=== PATIENT | female | born 1945 | race Caucasian/White ===

== ENCOUNTER 2018-11-27 15:57 | Emergency (ER) | payer MEDICARE ==
[~2018-11-27] VITALS: Ht 157.5 cm; Wt 98.0 kg
[2018-11-27 16:48] LABS: BASO % 0 % (0-3); EOS # 0.2 x10^3/uL (0.0-0.7); EOS % 2 % (0-3); HEMOGLOBIN 12.1 g/dL (12.0-15.5); LYMPH # 4.3 x10^3/uL (1.0-4.8); LYMPH % 40 % (24-48); MEAN CORPUSCULAR HEMOGLOBIN 27 pg (25-35); MEAN CORPUSCULAR HGB CONC 33 g/dL (31-37); MEAN CORPUSCULAR VOLUME 83 fL (79-100); MONO # 0.6 x10^3/uL (0.0-1.1); MONO % 6 % (0-9); NEUT # 5.7 x10^3uL (1.8-7.7); NEUT % 52 % (31-73); PLATELET COUNT 330 x10^3/uL (140-400); RED BLOOD COUNT 4.47 x10^6/uL (3.50-5.40); RED CELL DISTRIBUTION WIDTH 16.3 % (11.5-14.5)
[2018-11-27 16:53] LABS: ALBUMIN 3.5 g/dL (3.4-5.0); ALBUMIN/GLOBULIN RATIO 0.8 (1.0-1.7); CALCIUM 10.3 mg/dL (8.5-10.1); CREATININE 1.4 mg/dL (0.6-1.0); GFR 36.9; POTASSIUM 4.7 mmol/L (3.5-5.1); TOTAL BILIRUBIN 0.3 mg/dL (0.2-1.0); TOTAL PROTEIN 7.9 g/dL (6.4-8.2)
[2018-11-27] MEDS ORDERED: IV NORMAL SALINE 1,000ML 1,000 ML IV ONE (17:00)
--- NOTE | 2018-11-27 17:30 | PHYS DOC ---
Past History Past Medical History: Diabetes, GERD, High Cholesterol, Heart Disease, Hypertension, Renal Disease, UTI (LISSETTE BHATIA Jr., DO) Past Surgical History: Tonsillectomy (LISSETTE BHATIA Jr., DO) Alcohol Use: None Drug Use: None (LISSETTE BHATIA Jr., DO) Adult General Chief Complaint Chief Complaint: OVERDOSE HPI HPI Patient is a 73-year-old female who arrives from home with report of accidental overdose of her medications. Patient accidentally doubled up on all of her medications today, having forgotten that she had taken them earlier in the day. Patient had called poison control who instructed her to come to the emergency room. Patient denies any chest pain or shortness of breath. She does admit to some mild lightheadedness. Medications of interest included amlodipine and carvedilol.[] (LISSETTE BHATIA Jr., DO) Review of Systems Review of Systems Constitutional: Denies fever or chills [] Respiratory: Denies cough or shortness of breath [] Cardiovascular: No additional information not addressed in HPI [] GI: Denies abdominal pain, nausea or vomiting[] Neurologic: Denies headache, focal weakness or sensory changes [] All other systems were reviewed and found to be within normal limits, except as documented in this note. (LISSETTE BHATIA Jr., DO) Current Medications Current Medications Current Medications Medications (Trade) Dose Ordered Sig/Teo Start Time Stop Time Status Last Admin Dose Admin Sodium Chloride 1,000 ml @ 1,000 mls/hr 1X ONCE 11/27/18 17:00 11/27/18 17:59 11/27/18 17:04 1,000 MLS/HR (LISSETTE BHATIA Jr., DO) Allergies Allergies Allergies Coded Allergies Type Severity Reaction Last Updated Verified doxycycline Allergy Unknown 11/27/18 Yes lisinopril Allergy Unknown 11/27/18 Yes (LISSETTE BHATIA Jr., DO) Physical Exam Physical Exam Constitutional: Well developed, well nourished, no acute distress, non-toxic appearance. [] HENT: Normocephalic, atraumatic, bilateral external ears normal, oropharynx moist, no oral exudates, nose normal. [] Eyes: PERRLA, EOMI, conjunctiva normal, no discharge. [] Neck: Normal range of motion, no tenderness, supple, no stridor. [] Cardiovascular: Regular rate and rhythm[] Lungs & Thorax: Bilateral breath sounds clear to auscultation [] Abdomen: Bowel sounds normal, soft, no tenderness. [] Skin: Warm, dry, no erythema, no rash. [] Extremities: No tenderness, no cyanosis, no clubbing, ROM intact, no edema. [] Neurologic: Alert and oriented X 3, no focal deficits noted. [] (LISSETTE BHATIA Jr. DO) Current Patient Data Vital Signs Vital Signs Date Time Temp Pulse Resp B/P (MAP) Pulse Ox O2 Delivery O2 Flow Rate FiO2 11/27/18 16:00 97.7 60 19 95 Room Air Lab Results Laboratory Tests Test 11/27/18 16:10 White Blood Count 11.0 x10^3/uL (4.0-11.0) Red Blood Count 4.47 x10^6/uL (3.50-5.40) Hemoglobin 12.1 g/dL (12.0-15.5) Hematocrit 37.0 % (36.0-47.0) Mean Corpuscular Volume 83 fL (79-100) Mean Corpuscular Hemoglobin 27 pg (25-35) Mean Corpuscular Hemoglobin Concent 33 g/dL (31-37) Red Cell Distribution Width 16.3 % (11.5-14.5) H Platelet Count 330 x10^3/uL (140-400) Neutrophils (%) (Auto) 52 % (31-73) Lymphocytes (%) (Auto) 40 % (24-48) Monocytes (%) (Auto) 6 % (0-9) Eosinophils (%) (Auto) 2 % (0-3) Basophils (%) (Auto) 0 % (0-3) Neutrophils # (Auto) 5.7 x10^3uL (1.8-7.7) Lymphocytes # (Auto) 4.3 x10^3/uL (1.0-4.8) Monocytes # (Auto) 0.6 x10^3/uL (0.0-1.1) Eosinophils # (Auto) 0.2 x10^3/uL (0.0-0.7) Basophils # (Auto) 0.0 x10^3/uL (0.0-0.2) Sodium Level 140 mmol/L (136-145) Potassium Level 4.7 mmol/L (3.5-5.1) Chloride Level 105 mmol/L (98-107) Carbon Dioxide Level 24 mmol/L (21-32) Anion Gap 11 (6-14) Blood Urea Nitrogen 38 mg/dL (7-20) H Creatinine 1.4 mg/dL (0.6-1.0) H Estimated GFR (Cockcroft-Gault) 36.9 BUN/Creatinine Ratio 27 (6-20) H Glucose Level 140 mg/dL (70-99) H Calcium Level 10.3 mg/dL (8.5-10.1) H Total Bilirubin 0.3 mg/dL (0.2-1.0) Aspartate Amino Transferase (AST) 15 U/L (15-37) Alanine Aminotransferase (ALT) 20 U/L (14-59) Alkaline Phosphatase 86 U/L (46-116) Total Protein 7.9 g/dL (6.4-8.2) Albumin 3.5 g/dL (3.4-5.0) Albumin/Globulin Ratio 0.8 (1.0-1.7) L (LISSETTE BHATIA Jr., DO) EKG EKG EKG demonstrates normal sinus rhythm with rate of 66[] (LISSETTE BHATIA Jr., DO) Radiology/Procedures Radiology/Procedures [] (LISSETTE BHATIA Jr., DO) Course & Med Decision Making Course & Med Decision Making Pertinent Labs and Imaging studies reviewed. (See chart for details) [] (LISSETTE BHATIA Jr., DO) Course & Med Decision Making Re-exam. EKG. sinus bradycardia 59 bpm. Some nonspecific contour abnormalities. No acute interval change. Reviewed history with patient and daughter advised I saw overdose occurred approximately 1400 hrs. today. Impression- 1. Accidental overdose 2. Mild dehydration BUN 38 creatinine 1.4 3. Diabetes glucose 140 Patient follow-up primary care. Patient suggests to use a pill tray- pre-load tray. This would help patient avoid accidental intake of her meds twice. Patient return of any concerns. Patient push fluids. Patient follow-up primary care. Patient without symptoms on discharge. Patient ambulatory without problems. (BRODY PAREKH MD) Dragon Disclaimer Dragon Disclaimer This electronic medical record was generated, in whole or in part, using a voice recognition dictation system. (BHATIA,LISSETTE D Jr. DO) Departure Departure: Impression: Primary Impression: Accidental overdose Disposition: 01 HOME/RESIDENCE PRIOR TO ADM Condition: STABLE Dragon Disclaimer This chart was dictated in whole or in part using Voice Recognition software in a busy, high-work load, and often noisy Emergency Department environment. It may contain unintended and wholly unrecognized errors or omissions. (BRODY PAREKH MD) Problem Qualifiers Primary Impression: Accidental overdose Encounter type: initial encounter Qualified Codes: T50.901A - Poisoning by unspecified drugs, medicaments and biological substances, accidental (unintentional), initial encounter LISSETTE BHATIA Jr., DO Nov 27, 2018 17:30 BRODY PAREKH MD Nov 27, 2018 19:22
--- NOTE | 2018-11-27 18:04 | EKG ---
[address] [address] Test Date: 2018-11-27 Test Time: 16:39:10 Pat Name: AGUSTIN BINGHAM Department: Room: Gender: F Cluster Bore Operator: MOHIT : 1945 Requested By: LISSETTE BHATIA Order Number: [id number] Reading MD: Measurements Intervals [place] Rate: 62 P: 29 MI: 210 QRS: 16 QRSD: 102 T: 107 QT: 390 QTc: 398 Interpretive Statements SINUS RHYTHM QRS(T) CONTOUR ABNORMALITY CONSIDER ANTEROSEPTAL MYOCARDIAL DAMAGE CONSISTENT WITH INFERIOR INFARCT PROBABLY OLD T ABNORMALITY IN HIGH LATERAL LEADS ABNORMAL ECG RI6.01 No previous ECG available for comparison
[2018-11-27] MEDS ORDERED: MAGNESIUM HYDROXIDE 2,400 MG/30 ML ORAL.SUSP. PO ONE (20:00)
[2018-11-27 21:15] VITALS: BP 134/72
--- NOTE | 2018-11-28 06:40 | EKG ---
[address] [address] Test Date: 2018-11-27 Test Time: 18:43:07 Pat Name: AGUSTIN BINGHAM Department: Room: Gender: F Wiring Inspector: MOHIT : 1945 Requested By: LISSETTE BHATIA Order Number: [id number] Reading MD: Measurements Intervals [place] Rate: 59 P: 30 [place]: 214 QRS: 10 QRSD: 102 T: 42 QT: 400 QTc: 400 Interpretive Statements SINUS RHYTHM QRS(T) CONTOUR ABNORMALITY CONSISTENT WITH INFERIOR INFARCT PROBABLY OLD ABNORMAL ECG RI6.01 No previous ECG available for comparison
[2018-11-29] MEDS ORDERED: ATORVASTATIN CA80 MG PO (03:01)
[2018-11-29] MEDS ORDERED: AMLO10TA8 PO (03:01)
[2018-11-29] MEDS ORDERED: CLOP75TA PO (03:01)
[2018-11-29] MEDS ORDERED: CARV25TA2 PO (03:01)
[2018-11-29] MEDS ORDERED: RANI150C PO (03:01)
== END 2018-11-27 21:15 | disposition home or self-care (01) ==
LOC: ER 15:57
DX: T50.991A Poisoning by other drugs, medicaments and biological substances, accidental (unintentional), initial encounter (principal); E86.0 Dehydration; E11.9 Type 2 diabetes mellitus without complications; K21.9 Gastro-esophageal reflux disease without esophagitis; E78.00 Pure hypercholesterolemia, unspecified; I11.9 Hypertensive heart disease without heart failure; Z87.440 Personal history of urinary (tract) infections; Z88.1 Allergy status to other antibiotic agents; Z88.8 Allergy status to other drugs, medicaments and biological substances; Y92.89 Other specified places as the place of occurrence of the external cause
CPT/HCPCS: 36415; 80053; 85025; 93005; 96360; 96361; 99285-25; J7030

== ENCOUNTER 2018-12-28 22:26 | Inpatient (IN) | payer MEDICARE ==
[~2018-12-28] VITALS: Ht 157.5 cm; Wt 74.6 kg
[~2018-12-28 22:26] MED LIST: AMLO10TA8 PO; ATORVASTATIN CA80 MG PO; CARV25TA2 PO; CLOP75TA PO; ENOXAPARIN ** NOTE DOSE ** SYRINGE SQ ONE; RANI150C PO
--- NOTE | 2018-12-28 22:31 | ED.ADGEN ---
Past History Past Medical History: Anxiety, Arthritis, CAD, Diabetes, GERD, High Cholesterol, Heart Disease, Hypertension, Renal Disease, UTI Past Surgical History: Coronary Bypass Surgery, Tonsillectomy Alcohol Use: None Drug Use: None Adult General Chief Complaint Chief Complaint ".. She was complaining of tingle in lips.. and dizzy.. and we check her glucose and it was low.. we just see [facility] today.. we just changed some of her diabetic meds.. Saligui... or something.. " Daughter HPI HPI Patient is a 73 year old female who presents with above hx and complaints of hypoglycemia. Pt. hx of diabetes and has recently had changes in her medications for better control of her glucose. Pt. recently has moved in with her daughter. Pt. follows with [facility]. Pt. has been attempting to have better diet. Pt. hypoglycemic a home tonight. Pt. does not have hx of hypoglycemic unawareness. Review of Systems Review of Systems Constitutional: Denies fever or chills [] Eyes: Denies change in visual acuity, redness, or eye pain [] HENT: Denies nasal congestion or sore throat [] Respiratory: Denies cough or shortness of breath [] Cardiovascular: No additional information not addressed in HPI [] GI: Denies abdominal pain, nausea, vomiting, bloody stools or diarrhea [] : Denies dysuria or hematuria [] Musculoskeletal: Denies back pain or joint pain [] Integument: Denies rash or skin lesions [] Neurologic: Denies headache, focal weakness or sensory changes []complaints of tremor and numbness� One her glucose drops . Endocrine: Denies polyuria or polydipsia [] All other systems were reviewed and found to be within normal limits, except as documented in this note. Family History Family History Diabetes. Hypertension Current Medications Current Medications Current Medications Medications (Trade) Dose Ordered Sig/Teo Start Time Stop Time Status Last Admin Dose Admin Dextrose (Dextrose 50%-Water Syringe) 25 gm 1X ONCE 12/28/18 23:45 12/28/18 23:46 DC 12/28/18 23:45 25 GM Enoxaparin Sodium (Lovenox 100mg Syringe) 100 mg 1X ONCE 12/28/18 00:15 12/28/18 00:16 Cancel Lactated Ringer's 1,000 ml @ 100 mls/hr Q10H 12/28/18 22:36 12/29/18 08:35 12/28/18 23:04 100 MLS/HR Allergies Allergies Allergies Coded Allergies Type Severity Reaction Last Updated Verified doxycycline Allergy Unknown 11/27/18 Yes lisinopril Allergy Unknown 11/27/18 Yes Physical Exam Physical Exam Constitutional: moderate distress, non-toxic appearance. [] HENT: Normocephalic, atraumatic, bilateral external ears normal, oropharynx moist, no oral exudates, nose normal. [] Eyes: PERRLA, EOMI, conjunctiva normal, no discharge. [] Neck: Normal range of motion, no tenderness, supple, no stridor. [] Cardiovascular:Heart rate regular rhythm, no murmur [] PMI to Lt. Lungs & Thorax: Bilateral breath sounds clear to auscultation []midline scar Abdomen: Bowel sounds normal, soft, no tenderness, no masses, no pulsatile masses. [] Skin: Warm, dry, no erythema, no rash. [] Back: No tenderness, no CVA tenderness. [] Extremities: No tenderness, no cyanosis, no clubbing, ROM intact, no edema. [] Neurologic: Alert and oriented X 3, moves all extremities on request. Has decreased plantar sensory, no focal deficits noted. []Slight intentional tremor. No cording appreciated Psychologic: Affect anxious, judgement normal, mood normal. [] Current Patient Data Vital Signs Vital Signs Date Time Temp Pulse Resp B/P (MAP) Pulse Ox O2 Delivery O2 Flow Rate FiO2 12/28/18 23:29 73 18 159/75 (103) 95 Room Air 12/28/18 22:26 97.5 Lab Results Laboratory Tests Test 12/28/18 22:34 12/28/18 22:50 12/28/18 23:33 Glucose (Fingerstick) 107 mg/dL (70-99) H 44 mg/dL (70-99) L White Blood Count 14.4 x10^3/uL (4.0-11.0) H Red Blood Count 4.52 x10^6/uL (3.50-5.40) Hemoglobin 12.1 g/dL (12.0-15.5) Hematocrit 37.2 % (36.0-47.0) Mean Corpuscular Volume 82 fL (79-100) Mean Corpuscular Hemoglobin 27 pg (25-35) Mean Corpuscular Hemoglobin Concent 33 g/dL (31-37) Red Cell Distribution Width 17.0 % (11.5-14.5) H Platelet Count 346 x10^3/uL (140-400) Neutrophils (%) (Auto) 59 % (31-73) Lymphocytes (%) (Auto) 29 % (24-48) Monocytes (%) (Auto) 10 % (0-9) H Eosinophils (%) (Auto) 2 % (0-3) Basophils (%) (Auto) 1 % (0-3) Neutrophils # (Auto) 8.4 x10^3uL (1.8-7.7) H Lymphocytes # (Auto) 4.1 x10^3/uL (1.0-4.8) Monocytes # (Auto) 1.4 x10^3/uL (0.0-1.1) H Eosinophils # (Auto) 0.3 x10^3/uL (0.0-0.7) Basophils # (Auto) 0.1 x10^3/uL (0.0-0.2) Prothrombin Time 9.5 SEC (9.4-11.4) Prothrombin Time INR 0.9 (0.9-1.1) Activated Partial Thromboplast Time 26 SEC (23-33) D-Dimer (Katie) 2.24 mg/L (0.00-0.50) H Sodium Level 141 mmol/L (136-145) Potassium Level 3.8 mmol/L (3.5-5.1) Chloride Level 104 mmol/L (98-107) Carbon Dioxide Level 27 mmol/L (21-32) Anion Gap 10 (6-14) Blood Urea Nitrogen 26 mg/dL (7-20) H Creatinine 1.3 mg/dL (0.6-1.0) H Estimated GFR (Cockcroft-Gault) 40.2 Glucose Level 115 mg/dL (70-99) H Calcium Level 10.1 mg/dL (8.5-10.1) Magnesium Level 2.0 mg/dL (1.8-2.4) Total Bilirubin 0.5 mg/dL (0.2-1.0) Direct Bilirubin 0.1 mg/dL (0.0-0.2) Aspartate Amino Transferase (AST) 18 U/L (15-37) Alanine Aminotransferase (ALT) 19 U/L (14-59) Alkaline Phosphatase 90 U/L (46-116) Creatine Kinase 97 U/L (26-192) Troponin I Quantitative < 0.017 ng/mL (0-0.055) RW-Pyk-B-Type Natriuretic Peptide 278 pg/mL (0-124) H Total Protein 8.5 g/dL (6.4-8.2) H Albumin 3.8 g/dL (3.4-5.0) Lipase 213 U/L (73-393) EKG EKG My interpretation EKG shows a sinus rhythm at 77 bpm. Has prolonged GA interval. There is intraventricular block. There is baseline artifact[] Radiology/Procedures Radiology/Procedures [] Course & Med Decision Making Course & Med Decision Making Pertinent Labs and Imaging studies reviewed. (See chart for details) Pt. had recurrent episodes of hypoglycemia in ED. Will admit for observation until glucose levels stabilize. Pt. admitted to Dr. Akers. Obtain US legs in Am. Consider V/Q or CT angio once hydrated if US leg are negative. [] Final Impression Final Impression 1. DM 2. Hypoglycemia[] 3. History of hypertension 4. Leukocytosis 14.4 5. Elevated BUN and creatinine 26/1.3 6. Elevated D-dimer 2.24 Dragon Disclaimer Dragon Disclaimer This electronic medical record was generated, in whole or in part, using a voice recognition dictation system. Dragon Disclaimer This chart was dictated in whole or in part using Voice Recognition software in a busy, high-work load, and often noisy Emergency Department environment. It may contain unintended and wholly unrecognized errors or omissions. BRODY PAREKH MD Dec 28, 2018 22:30
[2018-12-28] MEDS ORDERED: IV RINGERS SOLUTION,LACTATED 1,000 ML IV SCH (22:36)
[2018-12-28 23:12] LABS: BASO # 0.1 x10^3/uL (0.0-0.2); BASO % 1 % (0-3); EOS # 0.3 x10^3/uL (0.0-0.7); EOS % 2 % (0-3); HEMATOCRIT 37.2 % (36.0-47.0); HEMOGLOBIN 12.1 g/dL (12.0-15.5); LYMPH # 4.1 x10^3/uL (1.0-4.8); LYMPH % 29 % (24-48); MEAN CORPUSCULAR HEMOGLOBIN 27 pg (25-35); MEAN CORPUSCULAR HGB CONC 33 g/dL (31-37); MEAN CORPUSCULAR VOLUME 82 fL (79-100); MONO # 1.4 x10^3/uL (0.0-1.1); MONO % 10 % (0-9); NEUT # 8.4 x10^3uL (1.8-7.7); NEUT % 59 % (31-73); PLATELET COUNT 346 x10^3/uL (140-400); RED BLOOD COUNT 4.52 x10^6/uL (3.50-5.40); WHITE BLOOD COUNT 14.4 x10^3/uL (4.0-11.0)
[2018-12-28 23:35] LABS: ALBUMIN 3.8 g/dL (3.4-5.0); CALCIUM 10.1 mg/dL (8.5-10.1); CREATININE 1.3 mg/dL (0.6-1.0); DIRECT BILIRUBIN 0.1 mg/dL (0.0-0.2); GFR 40.2; POTASSIUM 3.8 mmol/L (3.5-5.1); TOTAL BILIRUBIN 0.5 mg/dL (0.2-1.0); TOTAL PROTEIN 8.5 g/dL (6.4-8.2)
[2018-12-28] MEDS ORDERED: DEXTROSE 50% 25 GM / 50ML DISP.SYRIN. IV ONE ×2 (23:36→23:45)
[2018-12-29] MEDS ORDERED: IV RINGERS SOLUTION,LACTATED 1,000 ML IV ONE
[2018-12-29] MEDS ORDERED: ONDANSETRON PF 4 MG/2 ML VIAL. IV PRN
[2018-12-29] MEDS ORDERED: ACETAMINOPHEN 325 MG TABLET PO PRN
[2018-12-29] MEDS ORDERED: DEXTROSE 25% 10 ML DISP.SYRIN. IV ONE
[2018-12-29] MEDS ORDERED: DEXTROSE 50% 25 GM / 50ML DISP.SYRIN. IV PRN (01:30)
[2018-12-29 01:40] LABS: BARBITURATES NEG (NEG); BENZODIAZEPINES NEG (NEG); CANNABINOIDS NEG (NEG); COCAINE NEG (NEG); METHADONE NEG (NEG); OPIATES NEG (NEG); PHENCYCLIDINE NEG (NEG)
[2018-12-29 01:44] LABS: BACTERIA,URINE 0 /HPF (0-FEW); BILIRUBIN,URINE NEG (NEG); CLARITY,URINE CLEAR; COLOR,URINE YELLOW; GLUCOSE,URINE NEG (NEG); NITRITE,URINE NEG (NEG); RBC,URINE 0 /HPF (0-2); SQUAMOUS EPITHELIAL CELL,UR MOD /LPF; UROBILINOGEN,URINE 0.2 mg/dL (0.2 mg/dL)
[2018-12-29 01:46] LABS: AMPHETAMINE/METHAMPHETAMINE NEG (NEG)
--- NOTE | 2018-12-29 02:10 | NUR ---
The patient, AGUSTIN BINGHAM, 73 y/o, F admitted by EFRAIN MCKINNEY MD, was given written information regarding hospital policies, unit procedures and contact persons. Patient admitted form ED per [facility]. Patient stated that after taking new insulin her lips and face felt numb and so she came to ED. Patient alert and oriented x 4. Patient denies any complaints at this time. Patient's daughter at bedside with Patient and assists with patient care at home. Patient oriented to room, call light, bed and plan of care. See admission assessment/documentation. Call light in reach and patient gave return demonstration on use of call light for assistance. Valuables were checked and .Patient daughter took Patient purse with valuables home.
[2018-12-29 02:15] VITALS: BP 157/65
[2018-12-29] MEDS ORDERED: BRIM5DRO3 EACHEYE (03:46)
[2018-12-29] MEDS ORDERED: TORS5TAB3 PO (03:47)
[2018-12-29] MEDS ORDERED: LOSA100T14 PO ×2 (03:48→08:07)
[2018-12-29] MEDS ORDERED: INSU100C4 SQ (03:50)
[2018-12-29] MEDS ORDERED: INSU100I13 SQ ×2 (03:51→15:55)
[2018-12-29] MEDS ORDERED: CETI10TA16 PO (03:52)
[2018-12-29] MEDS ORDERED: DORZ10DR27 EACHEYE (03:53)
[2018-12-29 05:18] VITALS: BP 157/69
[2018-12-29] MEDS ORDERED: ENOXAPARIN ** NOTE DOSE ** SYRINGE SQ ONE (05:30)
[2018-12-29 06:45] LABS: BASO % 0 % (0-3); EOS # 0.2 x10^3/uL (0.0-0.7); EOS % 2 % (0-3); HEMATOCRIT 33.3 % (36.0-47.0); LYMPH # 3.6 x10^3/uL (1.0-4.8); LYMPH % 37 % (24-48); MEAN CORPUSCULAR HEMOGLOBIN 27 pg (25-35); MEAN CORPUSCULAR HGB CONC 33 g/dL (31-37); MEAN CORPUSCULAR VOLUME 83 fL (79-100); MONO # 0.8 x10^3/uL (0.0-1.1); MONO % 8 % (0-9); NEUT # 5.3 x10^3uL (1.8-7.7); NEUT % 53 % (31-73); PLATELET COUNT 314 x10^3/uL (140-400); RED BLOOD COUNT 4.03 x10^6/uL (3.50-5.40); RED CELL DISTRIBUTION WIDTH 16.7 % (11.5-14.5)
[2018-12-29 06:59] LABS: CALCIUM 9.5 mg/dL (8.5-10.1); CREATININE 1.2 mg/dL (0.6-1.0); POTASSIUM 4.1 mmol/L (3.5-5.1)
[2018-12-29] MEDS ORDERED: CETIRIZINE HCL 10 MG TABLET PO SCH (09:00)
[2018-12-29] MEDS ORDERED: amLODIPine BESYLATE 10 MG TABLET PO SCH (09:00)
[2018-12-29] MEDS ORDERED: BRIMONIDINE 0.2% OPHTH SOLUTION 5ML BOTTLE. OU SCH (09:00)
[2018-12-29] MEDS ORDERED: CARVEDILOL 12.5 MG TABLET PO SCH (09:00)
[2018-12-29] MEDS ORDERED: DORZOLAMIDE/TIMOLOL 2%/0.5% OPHTH SOLUTION 10ML BOTTLE. OU SCH (09:00)
[2018-12-29] MEDS ORDERED: FAMOTIDINE 20 MG TABLET PO SCH (09:00)
[2018-12-29] MEDS ORDERED: CLOPIDOGREL BISULFATE 75 MG TABLET PO SCH (09:00)
--- NOTE | 2018-12-29 09:50 | RAD ---
LEFT LEG VENOUS DOPPLER STUDY: Clinical indications: Elevated d-dimer. Findings: Duplex sonography (including hurd scale evaluation and color flow and waveform spectral analysis) of the proximal aspect of the greater saphenous vein and the proximal aspect of the profunda femoral vein and the entire length of the common femoral and superficial femoral and popliteal veins and the tibioperoneal trunk and the proximal aspect of the posterior tibial and peroneal veins of the left leg was performed. Normal compressibility, augmentation of color Doppler flow after calf compression, and respiratory variation of Doppler flow is seen. Thus, there are no sonographic findings of deep venous thrombosis within these veins. Impression: There are no sonographic findings of deep venous thrombosis within the veins discussed above of the left lower extremity. RIGHT LEG VENOUS DOPPLER STUDY: Clinical indications: Elevated d-dimer. Findings: Duplex sonography (including hurd scale evaluation and color flow and waveform spectral analysis) of the proximal aspect of the greater saphenous vein and proximal aspect of the profunda femoral vein and the entire length of the common femoral and superficial femoral and popliteal veins and the tibioperoneal trunk and the proximal aspect of the posterior tibial and peroneal veins of the right leg was performed. Normal compressibility, augmentation of color Doppler flow after calf compression, and respiratory variation of Doppler flow is seen. Thus, there are no sonographic findings of deep venous thrombosis within these veins. Impression: There are no sonographic findings of deep venous thrombosis within the veins discussed above of the right lower extremity. Electronically signed by: Rakesh Mayorga MD (12/29/2018 9:47 AM) [id number]
[2018-12-29 11:15] VITALS: BP 149/70
--- NOTE | 2018-12-29 14:08 | RAD ---
CHEST PA LATERAL History: Coronary artery disease Comparison: None. Findings: Frontal and lateral views of chest were obtained. Sternal wires [place] clips are present. The cardiomediastinal silhouette is normal. Pulmonary vasculature is normal. The lungs are clear. No pleural effusion or pneumothorax is seen. There is no acute bone abnormality. IMPRESSION: No acute cardiopulmonary process. Electronically signed by: Luis A Maciel MD (12/29/2018 2:06 PM) [facility]
[2018-12-29 14:57] VITALS: BP 165/67
--- NOTE | 2018-12-29 16:47 | NUR ---
Discharge Note: AGUSTIN BINGHAM [address] Discharge instructions and discharge home medications reviewed with Patient and a copy given. All questions have been answered and understanding verbalized. The following instructions and handouts were given: hypoglycemia Discontinued lines and drains: IV d/c removed, dressing applied Patient discharged to home with daughter present.
--- NOTE | 2018-12-29 17:13 | SSS ---
ADMIT DATE: 12/29/2018 HISTORY OF PRESENT ILLNESS: The patient a 73-year-old female patient who came to the Emergency Room complaining of tingling in her lips and dizzy and her blood sugar apparently was very low. She was seen by her primary care physician who added Soliqua 40 units subcutaneously in the evening. She is on NovoLog 15 units 3 times a day and her Lantus was 75 units twice a day, cut down to 57 twice a day and now recently she is down to 40 units twice a day. On top of that, they added the Soliqua and that is why the patient became hypoglycemic. She was admitted. We held all her insulin and have observed her over the 24-hour period and her blood sugar has been stable between 100-150. We have had a lengthy discussion with her and decision was made to go back on her NovoLog and Lantus and discontinue the Soliqua and we will arrange for her to be seen by an terrazzo worker helper, we will provide her the name and telephone number to make an appointment to be seen at the Endocrinology Clinic at [facility]. When I saw her, she was awake, alert and denied any complaint. PAST MEDICAL HISTORY: Significant for type 2 diabetes, coronary artery disease, hyperlipidemia, hypertension, chronic kidney disease and recurrent UTIs. She is also known to have anxiety and osteoarthritis. PAST SURGICAL HISTORY: Significant for coronary artery bypass graft surgery and tonsillectomy. ALLERGIES: She is allergic to DOXYCYCLINE AND LISINOPRIL. MEDICATIONS: She is currently on following medications: She is on cetirizine 10 mg once a day, Plavix 75 mg once a day, atorvastatin calcium 80 mg at bedtime, carvedilol 12.5 mg twice a day, amlodipine 10 mg daily, losartan potassium 100 mg daily, brimonidine tartrate for Alphagan one drop to both eyes twice a day, dorzolamide/timolol 1 drop to both eyes twice a day, ranitidine 150 mg twice a day. She is on NovoLog insulin 15 units before meals and Lantus insulin 40 units subcutaneously twice a day. FAMILY HISTORY: Noncontributory. SOCIAL HISTORY: She lives with her daughter. She apparently does not smoke, drink alcohol or use any recreational drugs. REVIEW OF SYSTEMS: As per history of present illness. PHYSICAL EXAMINATION: GENERAL: On arrival, the patient looked well and was clearly in no apparent respiratory distress. No pallor, jaundice, cyanosis or thyromegaly. No jugular venous distention. No lower limb edema. VITAL SIGNS: Her heart rate was 72, blood pressure 140/78, temperature was 98, respiratory rate was 20, and oxygen saturation was 94%. HEAD, EYES, EARS, NOSE AND THROAT: Showed normocephalic, atraumatic. NECK: Supple. HEART: Showed normal first and second heart sounds with no gallop or murmur. CHEST: Clear to auscultation. No crepitation, rhonchi. ABDOMEN: Distended, soft, nontender. No guarding or rigidity. No organomegaly. All hernial orifices intact. Bowel sounds normal. NEUROLOGIC: She was awake, alert, responding appropriately. All cranial nerves intact. EXTREMITIES: She moves extremities without difficulty. LABORATORY DATA: Her blood sugar on arrival was actually 107 mg/dL. Her lab work showed a serum sodium 141, potassium 3.8, chloride 104, bicarbonate 27, anion gap of 10, BUN 26, creatinine 1.3, estimated GFR was 40 mL per minute. Her glucose 115, calcium was 7.1, magnesium 2. Total bilirubin, AST, ALT, alkaline phosphatase were normal. Total protein was 8.5, albumin was 3.8. Her lipase was 113. TSH was slightly high at 10.6. Her prothrombin time was 9.5, INR of 0.9, aPTT was 26 and D-dimer was 2.24. Urinalysis was essentially unremarkable and toxic screen was negative. Her chest x-ray showed the sternal wires are present. The cardiomediastinal silhouette is normal. Pulmonary vasculature is normal. The lungs are clear. No pleural effusion or pneumothorax is seen. There is no acute bony abnormality. Her Doppler ultrasound of both lower extremities showed there is no sonographic finding of deep vein thrombosis in the left and right lower extremity. IMPRESSION AND PLAN: The patient remained hemodynamically stable throughout her stay. Her blood sugar has been stable between 100-150 and therefore, the patient will be discharged home to go back on her Lantus insulin 40 units twice a day, NovoLog 15 units 3 times a day before meals, we discontinued Soliqua and the patient will follow with her primary care physician as well as arrangement will be made for her to be seen by an terrazzo worker helper at [facility]. Meanwhile, she should continue on following medications. EFRAIN MCKINNEY MD DR: LONA/manuel JOB#: [id number] / [id number]
[2018-12-29] MEDS ORDERED: ATORVASTATIN CALCIUM 20 MG TABLET PO SCH (21:00)
[2018-12-30 01:06] LABS: HEMOGLOBIN A1C 7.9 % (4.8-5.6)
== END 2018-12-29 16:49 | disposition home or self-care (01) | DRG 639 ==
LOC: ER 22:26 → 1 SOUTH 23:45
PROVIDERS: ADMIT Internal Medicine; ATTEND Internal Medicine
DX: E11.649 Type 2 diabetes mellitus with hypoglycemia without coma (principal); E11.22 Type 2 diabetes mellitus with diabetic chronic kidney disease; E78.00 Pure hypercholesterolemia, unspecified; E78.5 Hyperlipidemia, unspecified; I12.9 Hypertensive chronic kidney disease with stage 1 through stage 4 chronic kidney disease, or unspecified chronic kidney disease; I25.10 Atherosclerotic heart disease of native coronary artery without angina pectoris; K21.9 Gastro-esophageal reflux disease without esophagitis; N18.9 Chronic kidney disease, unspecified; F41.9 Anxiety disorder, unspecified; M19.90 Unspecified osteoarthritis, unspecified site; Z79.4 Long term (current) use of insulin; Z82.49 Family history of ischemic heart disease and other diseases of the circulatory system; Z83.3 Family history of diabetes mellitus; Z87.440 Personal history of urinary (tract) infections; Z95.1 Presence of aortocoronary bypass graft; Z88.8 Allergy status to other drugs, medicaments and biological substances; Z79.899 Other long term (current) drug therapy
CPT/HCPCS: 36415; 71046; 80048; 80076; 80307; 81001; 82550; 82947; 83036; 83690; 83735; 83880; 84443; 84484; 85025; 85379; 85610; 85730; 87086; 93970; 96361; 96374; J1650; J7120; 99285-25

== ENCOUNTER 2019-05-15 23:25 | Emergency (ER) | payer MEDICARE ==
[~2019-05-15] VITALS: Ht 157.5 cm; Wt 76.5 kg
[~2019-05-15 23:25] MED LIST changes: +BRIM5DRO3 EACHEYE; +CETI10TA16 PO; +DORZ10DR27 EACHEYE; -ENOXAPARIN ** NOTE DOSE ** SYRINGE SQ ONE; +INSU100C4 SQ; +INSU100I13 SQ; +LOSA100T14 PO; +TORS5TAB3 PO
[2019-05-16] MEDS ORDERED: IV NORMAL SALINE 1,000ML 1,000 ML IV SCH
--- NOTE | 2019-05-16 00:09 | PHYS DOC ---
Past History Past Medical History: Anxiety, Arthritis, CAD, Diabetes, GERD, High Cholesterol, Heart Disease, Hypertension, [place], Renal Disease, UTI Additional Past Medical Histor: PAD, high tricyclerides Past Surgical History: Coronary Bypass Surgery, Tonsillectomy Additional Past Surgical Histo: 5 heart bypass Alcohol Use: None Drug Use: None Adult General Chief Complaint Chief Complaint: ABNORMAL LABS [facility] Patient is a 74-year-old female who presents with report of abnormal lab work. Patient had potassium level of 6.3 and was instructed to come into the emergency room for further evaluation. Patient denies any chest pain or shortness breath. She denies any nausea, vomiting or diarrhea.[] Review of Systems Review of Systems Constitutional: Denies fever or chills [] Respiratory: Denies cough or shortness of breath [] Cardiovascular: No additional information not addressed in [facility] [] GI: Denies abdominal pain, nausea, vomiting or diarrhea [] Integument: Denies rash or skin lesions [] Neurologic: Denies headache, focal weakness or sensory changes [] All other systems were reviewed and found to be within normal limits, except as documented in this note. Current Medications Current Medications Current Medications Medications (Trade) Dose Ordered Sig/Teo Start Time Stop Time Status Last Admin Dose Admin Sodium Chloride 1,000 ml @ 1,000 mls/hr Q1H 05/15/19 23:53 05/16/19 00:52 UNV Allergies Allergies Allergies Coded Allergies Type Severity Reaction Last Updated Verified doxycycline Allergy Unknown 11/27/18 Yes lisinopril Allergy Unknown 11/27/18 Yes Physical Exam Physical Exam Constitutional: Well developed, well nourished, no acute distress, non-toxic appearance. [] HENT: Normocephalic, atraumatic, bilateral external ears normal, oropharynx moist, no oral exudates, nose normal. [] Eyes: PERRLA, EOMI, conjunctiva normal, no discharge. [] Neck: Normal range of motion, no tenderness, supple, no stridor. [] Cardiovascular: Regular rate and rhythm[] Lungs & Thorax: Bilateral breath sounds clear to auscultation [] Abdomen: Bowel sounds normal, soft, no tenderness. [] Skin: Warm, dry, no erythema, no rash. [] Extremities: No tenderness, no cyanosis, no clubbing, ROM intact. [] Neurologic: Alert and oriented X 3, no focal deficits noted. [] Current Patient Data Vital Signs Vital Signs Date Time Temp Pulse Resp B/P (MAP) Pulse Ox O2 Delivery O2 Flow Rate FiO2 05/15/19 23:35 98.5 74 18 198/81 (120) 97 Room Air EKG EKG [] Radiology/Procedures Radiology/Procedures [] Course & Med Decision Making Course & Med Decision Making Pertinent Labs and Imaging studies reviewed. (See chart for details) [] Dragon Disclaimer Dragon Disclaimer This electronic medical record was generated, in whole or in part, using a voice recognition dictation system. Departure Departure: Impression: Primary Impression: Dehydration Disposition: HOME, SELF-CARE Condition: STABLE Referrals: PCP,NO (PCP) Patient Instructions: Dehydration, Adult LISSETTE BHATIA Jr. DO May 16, 2019 00:09
[2019-05-16 00:33] LABS: BASO % 0 % (0-3); EOS # 0.3 x10^3/uL (0.0-0.7); EOS % 2 % (0-3); HEMOGLOBIN 12.6 g/dL (12.0-15.5); LYMPH # 4.9 x10^3/uL (1.0-4.8); LYMPH % 38 % (24-48); MEAN CORPUSCULAR HEMOGLOBIN 25 pg (25-35); MEAN CORPUSCULAR HGB CONC 32 g/dL (31-37); MEAN CORPUSCULAR VOLUME 80 fL (79-100); MONO % 8 % (0-9); NEUT # 6.5 x10^3uL (1.8-7.7); NEUT % 51 % (31-73); PLATELET COUNT 317 x10^3/uL (140-400); RED BLOOD COUNT 4.98 x10^6/uL (3.50-5.40); RED CELL DISTRIBUTION WIDTH 16.9 % (11.5-14.5); WHITE BLOOD COUNT 12.8 x10^3/uL (4.0-11.0)
[2019-05-16 00:35] LABS: CALCIUM 9.6 mg/dL (8.5-10.1); CREATININE 1.6 mg/dL (0.6-1.0); GFR 31.5; POTASSIUM 4.9 mmol/L (3.5-5.1)
[2019-05-16 00:41] LABS: ALBUMIN 3.5 g/dL (3.4-5.0); ALBUMIN/GLOBULIN RATIO 0.8 (1.0-1.7); MAGNESIUM 1.6 mg/dL (1.8-2.4); TOTAL BILIRUBIN 0.2 mg/dL (0.2-1.0)
[2019-05-16 01:34] VITALS: BP 153/86
[2019-05-16 02:31] LABS: BACTERIA,URINE 0 /HPF (0-FEW); BILIRUBIN,URINE NEG (NEG); CLARITY,URINE CLEAR; COLOR,URINE YELLOW; GLUCOSE,URINE NEG (NEG); NITRITE,URINE NEG (NEG); RBC,URINE 0 /HPF (0-2); SQUAMOUS EPITHELIAL CELL,UR FEW /LPF; UROBILINOGEN,URINE 0.2 mg/dL (0.2 mg/dL); WBC,URINE OCC /HPF (0-4)
--- NOTE | 2019-05-17 18:36 | EKG ---
[address] [address] Test Date: 2019-05-15 Test Time: 23:48:34 Pat Name: AGUSTIN BINGHAM Department: Room: Gender: F Support Teacher: : 1945 Requested By: LISSETTE BHATIA Order Number: [id number] Reading MD: Measurements Intervals [place] Rate: 74 P: 37 [place]: 192 QRS: 40 QRSD: 102 T: -176 QT: 366 QTc: 411 Interpretive Statements SINUS RHYTHM T ABNORMALITY IN HIGH LATERAL LEADS INFERIOR LEADS ABNORMAL ECG RI6.01 No previous ECG available for comparison
--- NOTE | 2019-06-07 14:44 | EKG ---
[address] [address] Test Date: 2019-05-15 Test Time: 23:48:34 Pat Name: AGUSTIN BINGHAM Department: Room: Gender: F State Tested Nursing Assistant: : 1945 Requested By: LISSETTE BHATIA Order Number: [id number] Reading MD: Measurements Intervals [place] Rate: 74 P: 37 [place]: 192 QRS: 40 QRSD: 102 T: -176 QT: 366 QTc: 411 Interpretive Statements SINUS RHYTHM T ABNORMALITY IN HIGH LATERAL LEADS INFERIOR LEADS ABNORMAL ECG RI6.01 No previous ECG available for comparison DICTATED and SIGNED BY: CAITLYN DATE: 05/15/19 2348 MTDD
== END 2019-05-16 02:09 | disposition home or self-care (01) ==
LOC: ER 23:25
DX: E86.0 Dehydration (principal); R79.9 Abnormal finding of blood chemistry, unspecified; I11.9 Hypertensive heart disease without heart failure; E11.9 Type 2 diabetes mellitus without complications; K21.9 Gastro-esophageal reflux disease without esophagitis; E78.00 Pure hypercholesterolemia, unspecified; I25.10 Atherosclerotic heart disease of native coronary artery without angina pectoris; I25.2 Old myocardial infarction; Z95.1 Presence of aortocoronary bypass graft; Z88.1 Allergy status to other antibiotic agents; Z88.8 Allergy status to other drugs, medicaments and biological substances
CPT/HCPCS: 36415; 80053; 81001; 83735; 85025; 93005; 96360; 99285-25; J7030

== ENCOUNTER 2021-03-21 07:00 | Emergency (ER) | payer MEDICARE ==
[~2021-03-21] VITALS: Ht 157.5 cm; Wt 73.5 kg
[~2021-03-21 07:00] MED LIST changes: +AMLO-187 PO; -AMLO10TA8 PO
[2021-03-21 07:15] VITALS: BP 175/77
--- NOTE | 2021-03-21 07:55 | PHYS DOC ---
Past History Past Medical History: Anxiety, Arthritis, CAD, Diabetes, GERD, High Cholesterol, Heart Disease, Hypertension, [place], Renal Disease, UTI Additional Past Medical Histor: PAD, high tricyclerides, glaucoma Past Surgical History: Coronary Bypass Surgery, Tonsillectomy Additional Past Surgical Histo: 5 heart bypass Alcohol Use: None Drug Use: None Adult General Chief Complaint Chief Complaint: HYPERGLYCEMIA HPI HPI Patient is a 75-year-old female presenting with daughter for hyperglycemia. States this is an acute issue. She is a known type 2 insulin-dependent diabetic utilizing Lantus and sliding scale NovoLog insulin. Reports she was infected with COVID-19 approximately 1 month ago and was recently placed on azithromycin and steroid Dosepak. Reports that since starting the steroid Dosepak, her blood sugars have been elevated for past baseline. Her and daughter are concerned about elevated readings prompting them to come in for evaluation. Daughter and patient states that patient has been taking all medications as scheduled but are scared to administer higher doses of sliding scale insulin due to prior episodes of hypoglycemia. Patient is otherwise at baseline health with no fever, dizziness, falls, chest pain, ripping or tearing in chest, shortness of breath past baseline, abdominal pain, nausea vomit diarrhea, bladder or bowel symptoms, polydipsia or polyphagia Review of Systems Review of Systems Fourteen body systems of review of systems have been reviewed. See HPI for pertinent positives and negative responses, other suggs all other systems are negative, non-pertinent or non-contributory Allergies Allergies Allergies Coded Allergies Type Severity Reaction Last Updated Verified doxycycline Allergy Unknown 03/21/21 Yes lisinopril Allergy Unknown 03/21/21 Yes Physical Exam Physical Exam Constitutional: Well developed, well nourished, no acute distress, non-toxic appearance. HENT: Normocephalic, atraumatic, bilateral external ears normal, oropharynx moist, no oral exudates, nose normal. Eyes: PERRLA, EOMI, conjunctiva normal, no discharge. Neck: Normal range of motion, no tenderness, supple, no stridor. Cardiovascular: Heart rate regular, sinus rhythm, no murmurs rubs or gallops Lungs & Thorax: No obvious respiratory failure, scant rhonchi bilaterally, without any increased work of breathing or sensory muscle use Abdomen: Bowel sounds normal, soft, no tenderness, no masses, no pulsatile masses. Nonsurgical abdomen, no peritoneal signs Skin: Warm, dry, no erythema, no rash. Back: No tenderness, no CVA tenderness. Extremities: No tenderness, no cyanosis, no clubbing, ROM intact, no edema. Neurologic: Alert and oriented X 3, grossly normal motor & sensory function, no focal deficits noted. Psychologic: Affect normal, judgement normal, mood normal. Current Patient Data Vital Signs Vital Signs Date Time Temp Pulse Resp B/P (MAP) Pulse Ox O2 Delivery O2 Flow Rate FiO2 03/21/21 07:15 97.7 60 20 175/77 (109) 94 Room Air Lab Results Laboratory Tests Test 03/21/21 07:33 Glucose (Fingerstick) 312 mg/dL (70-99) H EKG EKG [] Radiology/Procedures Radiology/Procedures [] Heart Score C/O Chest Pain: No Risk Factors: Risk Factors: DM, Current or recent (<one month) smoker, HTN, HLP, family history of CAD, obesity. Risk Scores: Risk Factors: DM, Current or recent (<one month) smoker, HTN, HLP, family history of CAD, obesity. Course & Med Decision Making Course & Med Decision Making ABCs unremarkable HPI physical exam and [id number] glucose 312 today, no acute emergent or surgical findings I discussed little indication for further diagnostic work-up in ER setting in an otherwise asymptomatic patient. Patient and daughter are unaware that recently prescribed steroid Dosepak will cause transient hyperglycemia I did disclose that this elevation in blood sugar will respond to sliding scale insulin and they should use the corrective chart as instructed. Extensive education by myself and RN was given with good understanding by both patient and daughter patient will be returning home with daughter, daughter is not working for the upcoming 3 days which is the amount of time for patient to finish Dosepak. Instructions given to increase frequency of fingerstick blood glucose checks ultimately, joint decision among all to defer any further diagnostic work-up in an otherwise hemodynamically stable asymptomatic patient. Strict return precautions discussed and understood well by patient and daughter prior to ER departure Delfina Disclaimer Dragon Disclaimer This electronic medical record was generated, in whole or in part, using a voice recognition dictation system. Departure Departure: Impression: Primary Impression: Hyperglycemia due to type 2 diabetes mellitus Additional Impression: Steroid-induced hyperglycemia Disposition: HOME / SELF CARE / HOMELESS Condition: STABLE Referrals: JUDI HERRERA APRN (PCP) Patient Instructions: Insulin Treatment in Diabetes Additional Instructions: You were seen for hyperglycemia. You need to continue taking your insulin/diabetes medications as prescribed, specifically adhering to your sliding scale insulin and follow up with your primary care doctor as soon as possible. It is important for good glycemic control to reduce the risks of acute and chronic medical problems. As disclosed, your recently started steroids are likely causing your elevated blood sugars. These are transient and will respond to sliding scale insulin so please use your previously given sliding scale correction chart as instructed. I am okay with slightly higher than typical blood sugar readings with goal blood sugar being less than 300 while finishing your steroid Dosepak. Return to the ED if you develop any abdominal pain, vomiting, cough, chest pain, fever, or any other new or concerning symptoms. Problem Qualifiers MARIA R RIVERA DO Mar 21, 2021 07:55
== END 2021-03-21 08:15 | disposition home or self-care (01) ==
LOC: ER 07:00
DX: E11.65 Type 2 diabetes mellitus with hyperglycemia (principal); K21.9 Gastro-esophageal reflux disease without esophagitis; E78.5 Hyperlipidemia, unspecified; T38.0X5A Adverse effect of glucocorticoids and synthetic analogues, initial encounter; Z88.1 Allergy status to other antibiotic agents; Z88.8 Allergy status to other drugs, medicaments and biological substances; Y92.89 Other specified places as the place of occurrence of the external cause
CPT/HCPCS: 82947; 99281-25